=== PATIENT | female | born 1980 | race Two or more races ===

== ENCOUNTER 2020-10-19 12:04 | Inpatient (IN) | payer MEDICAID, OTHER ==
[~2020-10-19] VITALS: Ht 167.6 cm; Wt 68.0 kg
[2020-10-19 13:19] LABS: Eosinophils # (auto) 0 10 ^3/uL (0-0.8); Lymphocytes # (auto) 1.4 10 ^3/uL (0.4-5.4); Monocytes # (auto) 0.7 10 ^3/uL (0-1.3); Monocytes % (auto) 5.5 % (0.0-12.0); Neutrophils # (auto) 11.2 10 ^3/uL (1.6-8.6); White Blood Cell 13.4 10^3/uL (4.4-10.8)
[2020-10-19 13:21] LABS: Basophils # (auto) 0.1 10 ^3/uL (0-0.2); Basophils % (auto) 0.4 % (0.0-2.0); Eosinophils % (auto) 0.3 % (0.0-7.0); Hematocrit 32.4 % (36.0-46.0); Hemoglobin 10.4 g/dL (12.2-16.2); Lymphocytes % (auto) 10.6 % (10.0-50.0); Mean Corpuscular Hemoglobin 22.8 pg (28.0-32.0); Mean Corpuscular Volume 71.3 fL (80.0-100.0); Neutrophils % (auto) 83.2 % (37.0-80.0); Red Blood Cells 4.55 10^6/uL (4.0-5.20); Red Cell Distribution Width 17.5 % (11.8-14.3)
[2020-10-19 13:37] LABS: Albumin 2.5 g/dL (3.4-5.0); Calcium 8.2 mg/dL (8.5-10.1)
[2020-10-19 13:40] LABS: BUN/Creatinine Ratio 26.8; Bilirubin, Total 0.3 mg/dL (0.2-1.0); Total Protein 6.4 g/dL (6.4-8.2)
[2020-10-19] MEDS ORDERED: PIPERACILLIN-TAZO 4.5GM 100 ML IV ONE (14:00)
[2020-10-19 14:15] LABS: Potassium 2.9 mmol/L (3.5-5.1)
[2020-10-19] MEDS ORDERED: VANCOMYCIN 1GM/250ML 250 ML IV ONE (15:15)
[2020-10-19] MEDS ORDERED: POTASSIUM EFFERVESENT TAB 25 MEQ PO ONE (15:30)
[2020-10-19] MEDS ORDERED: VANCOMYCIN 500 MG in D5W 5% 100 ML IV ONE (16:30)
[2020-10-19] MEDS ORDERED: IOHEXOL 300 MG/ML 100ML BOTTLE IJ ONE (18:12)
[2020-10-19] MEDS ORDERED: SOD CHL 0.9%/ KCL 20MEQ 1,000 ML IV ONE (18:15)
[2020-10-19] MEDS ORDERED: guaiFENesin-DM 100/10mg/5ml SYR PO PRN (18:15)
[2020-10-19] MEDS ORDERED: ONDANSETRON HCL 4 MG/2 ML VIAL IV PRN (18:15)
[2020-10-19] MEDS ORDERED: MORPHINE SULFATE INJECTION 2 MG/ML SYRG IV PRN (18:15)
[2020-10-19] MEDS ORDERED: NITROGLYCERIN 0.4 MG SL TAB SL PRN (18:15)
[2020-10-19] MEDS ORDERED: IOHEXOL 350 MG/ML 100ML IJ ONE (18:28)
[2020-10-19] MEDS: DexAMETHasone SOD PHOS 10MG/1ML VIAL INJ IV SCH (19:06)
[2020-10-19] MEDS ORDERED: VANCOMYCIN 1,500 MG in D5W 5% 250 ML IV SCH (22:00)
[2020-10-19] MEDS: BUDESONIDE (INHALATION) 180 MCG IH IN SCH (22:00)
[2020-10-19] MEDS: ENOXAPARIN SOD 40 MG/0.4 ML SYRINGE SC SCH (22:25)
[2020-10-20 07:03] LABS: Basophils # (auto) 0 10 ^3/uL (0-0.2); Basophils % (auto) 0.4 % (0.0-2.0); Eosinophils # (auto) 0 10 ^3/uL (0-0.8); Eosinophils % (auto) 0.3 % (0.0-7.0); Hematocrit 29.1 % (36.0-46.0); Hemoglobin 9.7 g/dL (12.2-16.2); Lymphocytes # (auto) 0.8 10 ^3/uL (0.4-5.4); Lymphocytes % (auto) 11.1 % (10.0-50.0); Mean Corpuscular Hemoglobin 23.9 pg (28.0-32.0); Mean Corpuscular Hgb Conc. 33.4 g/dL (32.0-36.0); Mean Corpuscular Volume 71.7 fL (80.0-100.0); Monocytes # (auto) 0.6 10 ^3/uL (0-1.3); Monocytes % (auto) 8.9 % (0.0-12.0); Neutrophils # (auto) 5.4 10 ^3/uL (1.6-8.6); Neutrophils % (auto) 79.3 % (37.0-80.0); Nucleated Red Blood Cells % 0.1 %; Red Blood Cells 4.06 10^6/uL (4.0-5.20); Red Cell Distribution Width 17.6 % (11.8-14.3); White Blood Cell 6.8 10^3/uL (4.4-10.8)
[2020-10-20 07:18] LABS: Potassium 4.1 mmol/L (3.5-5.1)
[2020-10-20 07:25] LABS: Albumin 2.1 g/dL (3.4-5.0); BUN/Creatinine Ratio 17.9; Bilirubin, Total 0.3 mg/dL (0.2-1.0); Total Protein 5.9 g/dL (6.4-8.2)
[2020-10-20] MEDS: BUDESONIDE (INHALATION) 180 MCG IH IN SCH ×2 (10:00→20:07)
[2020-10-20] MEDS: AZITHROMYCIN 500MG/ 250ML 250 ML IV SCH (10:37)
[2020-10-20] MEDS: DexAMETHasone SOD PHOS 10MG/1ML VIAL INJ IV SCH (10:37)
[2020-10-20] MEDS: cefTRIAXone 1GM/50ML D5W 50 ML IV SCH (10:37)
[2020-10-20] MEDS: ZINC SULFATE 220mg CAP or TAB PO SCH (10:38)
[2020-10-20] MEDS: CHOLECALCIFEROL (VITD3) 2,000 UNIT CAP/TAB PO SCH (10:38)
[2020-10-20] MEDS: ENOXAPARIN SOD 40 MG/0.4 ML SYRINGE SC SCH ×2 (10:38→22:27)
[2020-10-20] MEDS: ASCORBIC ACID 1,000 MG TAB PO SCH (10:38)
[2020-10-20] MEDS: ALBUTEROL SULF HFA 90MCG INH 200DOSE IN PRN ×2 (12:25→20:09)
[2020-10-20 15:54] LABS: % Iron Saturation 9.3 % (15-50)
[2020-10-20 17:35] LABS: Urine Bacteria NONE SEEN /hpf (None Seen); Urine Blood 1+ /uL (Negative); Urine Specific Gravity 1.005 (1.001-1.035); Urine WBC 1 /hpf (0 - 5)
[2020-10-20 17:47] LABS: Alcohol, Urine < 3.0 mg/dL (0-10); Amphetamine Screen, Urine NEGATIVE (NEGATIVE); Barbiturate Scree,Urine NEGATIVE (NEGATIVE); Benzodiazephine Screen, Urine NEGATIVE (NEGATIVE); Cannabinoid Screen, Urine NEGATIVE (NEGATIVE); Cocaine Screen, Urine NEGATIVE (NEGATIVE); Opiate Scree,Urine NEGATIVE (NEGATIVE); Phencyclidine Screen, Urine NEGATIVE (NEGATIVE)
[2020-10-21 05:02] LABS: Hemoglobin 9.4 g/dL (12.2-16.2)
[2020-10-21 05:11] LABS: Magnesium 2.3 mg/dL (1.6-2.6)
[2020-10-21] MEDS: ALBUTEROL SULF HFA 90MCG INH 200DOSE IN PRN ×2 (08:09→22:48)
[2020-10-21] MEDS: BUDESONIDE (INHALATION) 180 MCG IH IN SCH ×2 (08:10→22:10)
[2020-10-21] MEDS: AZITHROMYCIN 500MG/ 250ML 250 ML IV SCH (09:19)
[2020-10-21] MEDS: ZINC SULFATE 220mg CAP or TAB PO SCH (09:19)
[2020-10-21] MEDS: ASCORBIC ACID 1,000 MG TAB PO SCH (09:19)
[2020-10-21] MEDS: cefTRIAXone 1GM/50ML D5W 50 ML IV SCH (09:19)
[2020-10-21] MEDS: ENOXAPARIN SOD 40 MG/0.4 ML SYRINGE SC SCH ×2 (09:19→22:09)
[2020-10-21] MEDS: CHOLECALCIFEROL (VITD3) 2,000 UNIT CAP/TAB PO SCH (09:19)
[2020-10-21] MEDS: DexAMETHasone SOD PHOS 10MG/1ML VIAL INJ IV SCH (09:19)
[2020-10-21] MEDS ORDERED: REMDESIVIR PER PHARMACY 0 ML IV SCH (14:30)
[2020-10-21] MEDS ORDERED: LACTULOSE 20Gm/30ML SOLN PO PRN (14:30)
[2020-10-21] MEDS ORDERED: REMDESIVIR 200 MG in NS 210ml LOADING DOSE ADULT IV ONE (16:00)
[2020-10-21 22:00] VITALS: BP 115/71
[2020-10-21] MEDS: FERROUS SULFATE 325mg EC TAB PO SCH (22:09)
[2020-10-21] MEDS: FAMOTIDINE 20 MG TAB PO SCH (22:09)
[2020-10-21] MEDS ORDERED: IBUPROFEN 400 MG TAB PO PRN (22:45)
[2020-10-22 04:30] VITALS: BP 110/60
[2020-10-22 06:02] LABS: Potassium 3.8 mmol/L (3.5-5.1)
[2020-10-22 06:11] LABS: Albumin 2.1 g/dL (3.4-5.0); BUN/Creatinine Ratio 26.9
[2020-10-22 06:13] LABS: Bilirubin, Total 0.1 mg/dL (0.2-1.0); Total Protein 5.7 g/dL (6.4-8.2)
[2020-10-22 06:20] LABS: Hemoglobin 9.4 g/dL (12.2-16.2)
[2020-10-22 06:22] LABS: Hematocrit 29.1 % (36.0-46.0)
[2020-10-22] MEDS: ALBUTEROL SULF HFA 90MCG INH 200DOSE IN PRN ×2 (06:36→22:21)
[2020-10-22] MEDS: BUDESONIDE (INHALATION) 180 MCG IH IN SCH ×2 (06:37→22:21)
[2020-10-22] MEDS: FERROUS SULFATE 325mg EC TAB PO SCH ×2 (08:00→18:34)
[2020-10-22 08:06] LABS: CRP High Sensitivity 1.75 mg/dL (< 0.3)
[2020-10-22 09:00] VITALS: BP 109/64
[2020-10-22] MEDS: cefTRIAXone 1GM/50ML D5W 50 ML IV SCH (09:00)
[2020-10-22] MEDS: ASCORBIC ACID 1,000 MG TAB PO SCH (10:00)
[2020-10-22] MEDS: ENOXAPARIN SOD 40 MG/0.4 ML SYRINGE SC SCH ×2 (10:00→21:36)
[2020-10-22] MEDS: CHOLECALCIFEROL (VITD3) 2,000 UNIT CAP/TAB PO SCH (10:00)
[2020-10-22] MEDS: DexAMETHasone SOD PHOS 10MG/1ML VIAL INJ IV SCH (10:00)
[2020-10-22] MEDS: FAMOTIDINE 20 MG TAB PO SCH ×2 (10:00→21:35)
[2020-10-22] MEDS: ZINC SULFATE 220mg CAP or TAB PO SCH (10:00)
[2020-10-22] MEDS: AZITHROMYCIN 500MG/ 250ML 250 ML IV SCH (11:55)
[2020-10-22 13:00] VITALS: BP 106/53
[2020-10-22] MEDS: REMDESIVIR 100mg 100 MG in SODIUM CHL 0.9% 230 ML IV SCH (15:49)
[2020-10-22 17:00] VITALS: BP 114/89
[2020-10-22] MEDS: ACETAMINOPHEN 325 MG TAB PO PRN (20:31)
[2020-10-22 21:52] VITALS: BP 108/60
[2020-10-23 05:37] VITALS: BP 120/67
[2020-10-23 06:18] LABS: Basophils # (auto) 0 10 ^3/uL (0-0.2); Basophils % (auto) 0.4 % (0.0-2.0); Eosinophils # (auto) 0.1 10 ^3/uL (0-0.8); Eosinophils % (auto) 0.8 % (0.0-7.0); Hematocrit 29.8 % (36.0-46.0); Hemoglobin 9.6 g/dL (12.2-16.2); Lymphocytes # (auto) 1.6 10 ^3/uL (0.4-5.4); Lymphocytes % (auto) 16.9 % (10.0-50.0); Mean Corpuscular Hemoglobin 23.2 pg (28.0-32.0); Mean Corpuscular Hgb Conc. 32.1 g/dL (32.0-36.0); Mean Corpuscular Volume 72.2 fL (80.0-100.0); Monocytes % (auto) 10.5 % (0.0-12.0); Neutrophils # (auto) 6.7 10 ^3/uL (1.6-8.6); Neutrophils % (auto) 71.4 % (37.0-80.0); Nucleated Red Blood Cells % 0.1 %; Red Blood Cells 4.13 10^6/uL (4.0-5.20); Red Cell Distribution Width 17.7 % (11.8-14.3); White Blood Cell 9.4 10^3/uL (4.4-10.8)
[2020-10-23 06:27] LABS: Albumin 2.1 g/dL (3.4-5.0); Calcium 8.1 mg/dL (8.5-10.1); Potassium 3.9 mmol/L (3.5-5.1)
[2020-10-23] MEDS: ALBUTEROL SULF HFA 90MCG INH 200DOSE IN PRN ×2 (06:35→21:44)
[2020-10-23] MEDS: BUDESONIDE (INHALATION) 180 MCG IH IN SCH ×2 (06:35→21:44)
[2020-10-23 06:36] LABS: BUN/Creatinine Ratio 30.2; Bilirubin, Total 0.1 mg/dL (0.2-1.0); Total Protein 5.7 g/dL (6.4-8.2)
[2020-10-23 08:00] VITALS: BP 132/69
[2020-10-23] MEDS: cefTRIAXone 1GM/50ML D5W 50 ML IV SCH (09:04)
[2020-10-23] MEDS: DexAMETHasone SOD PHOS 10MG/1ML VIAL INJ IV SCH (09:04)
[2020-10-23] MEDS: FERROUS SULFATE 325mg EC TAB PO SCH ×2 (09:04→18:00)
[2020-10-23] MEDS: AZITHROMYCIN 500MG/ 250ML 250 ML IV SCH ×2 (09:04→10:25)
[2020-10-23] MEDS: ASCORBIC ACID 1,000 MG TAB PO SCH (09:05)
[2020-10-23] MEDS: ZINC SULFATE 220mg CAP or TAB PO SCH (09:05)
[2020-10-23] MEDS: FAMOTIDINE 20 MG TAB PO SCH ×2 (09:05→20:01)
[2020-10-23] MEDS: CHOLECALCIFEROL (VITD3) 2,000 UNIT CAP/TAB PO SCH (09:06)
[2020-10-23] MEDS: ENOXAPARIN SOD 40 MG/0.4 ML SYRINGE SC SCH (09:06)
[2020-10-23] MEDS ORDERED: ENOXAPARIN SOD 40 MG/0.4 ML SYRINGE SC SCH (10:00)
[2020-10-23] MEDS: REMDESIVIR 100mg 100 MG in SODIUM CHL 0.9% 230 ML IV SCH (15:36)
[2020-10-23 17:00] VITALS: BP 108/66
[2020-10-23] MEDS: ACETAMINOPHEN 325 MG TAB PO PRN (19:53)
[2020-10-23 22:08] VITALS: BP 125/64
[2020-10-24 05:00] VITALS: BP 118/76
[2020-10-24 05:20] VITALS: BP 118/76
[2020-10-24] MEDS: BUDESONIDE (INHALATION) 180 MCG IH IN SCH (06:32)
[2020-10-24] MEDS: ALBUTEROL SULF HFA 90MCG INH 200DOSE IN PRN (06:32)
[2020-10-24 06:51] LABS: Potassium 4.1 mmol/L (3.5-5.1)
[2020-10-24 06:58] LABS: Albumin 2.2 g/dL (3.4-5.0); BUN/Creatinine Ratio 22.4; Calcium 8.4 mg/dL (8.5-10.1)
[2020-10-24 07:00] LABS: Bilirubin, Total 0.2 mg/dL (0.2-1.0); Total Protein 5.7 g/dL (6.4-8.2)
[2020-10-24 09:00] VITALS: BP 106/60
[2020-10-24] MEDS: DexAMETHasone SOD PHOS 10MG/1ML VIAL INJ IV SCH (09:27)
[2020-10-24] MEDS: cefTRIAXone 1GM/50ML D5W 50 ML IV SCH (09:27)
[2020-10-24] MEDS: FERROUS SULFATE 325mg EC TAB PO SCH (09:27)
[2020-10-24] MEDS: ZINC SULFATE 220mg CAP or TAB PO SCH (09:27)
[2020-10-24] MEDS: CHOLECALCIFEROL (VITD3) 2,000 UNIT CAP/TAB PO SCH (09:28)
[2020-10-24] MEDS: ENOXAPARIN SOD 40 MG/0.4 ML SYRINGE SC SCH ×2 (09:28→09:38)
[2020-10-24] MEDS: FAMOTIDINE 20 MG TAB PO SCH (09:28)
[2020-10-24] MEDS: ASCORBIC ACID 1,000 MG TAB PO SCH (09:28)
[2020-10-24] MEDS: AZITHROMYCIN 500MG/ 250ML 250 ML IV SCH (11:33)
[2020-10-24 13:00] VITALS: BP 110/63
[2020-10-24] MEDS: REMDESIVIR 100mg 100 MG in SODIUM CHL 0.9% 230 ML IV SCH (15:30)
[2020-10-24 15:36] VITALS: BP 110/63
[2020-10-24 17:00] VITALS: BP 117/75
== END 2020-10-24 17:06 | disposition home or self-care (01) | DRG 177 ==
LOC: EDBD 12:04 → ER 12:04 → TELE 18:03 → TELE-EAST 10-21 16:52 → EAST 10-23 13:28
PROVIDERS: ADMIT Nurse Practitioner Acute Care; ATTEND Internal Medicine
PROC: XW033E5 Introduction of Remdesivir Anti-infective into Peripheral Vein, Percutaneous Approach, New Technology Group 5 (ICD-10-PCS; principal; 2020-10-21)
DX: U07.1 COVID-19 (principal); J12.82 Pneumonia due to coronavirus disease 2019; J96.01 Acute respiratory failure with hypoxia; E43 Unspecified severe protein-calorie malnutrition; E87.6 Hypokalemia; D50.9 Iron deficiency anemia, unspecified; E88.09 Other disorders of plasma-protein metabolism, not elsewhere classified; N92.0 Excessive and frequent menstruation with regular cycle; D89.839 Cytokine release syndrome, grade unspecified
CPT/HCPCS: 36415; 36600; 71045; 71275; 80053; 80307; 81001; 82270; 82306; 82728; 82805; 83540; 83550; 83605; 83615; 83735; 84132; 84702; 85014; 85018; 85025; 85379; 86141; 87040; 87426; 93005; 94640; 96365; 96367; G0378; J0696; J1100; J2543; J7060